=== PATIENT | female | born 1945 | race Asian ===

== ENCOUNTER 2022-05-05 09:20 | Inpatient (IN) | payer MEDICARE, OTHER ==
[~2022-05-05] VITALS: Ht 157.5 cm; Wt 50.0 kg
[2022-05-05 09:58] LABS: BASOPHILS % (AUTO) 0.7 % (0.0-2.0); EOSINOPHILS % (AUTO) 1.4 % (1.0-6.0); HEMATOCRIT 43.8 % (36-46); HEMOGLOBIN 14.5 g/dL (12.0-16.0); LYMPHOCYTES # (AUTO) 2.4 K/uL (1.0-4.8); LYMPHOCYTES % (AUTO) 19.2 % (22.0-44.0); MEAN CORPUSCULAR HEMOGLOBIN 27.8 pg (26.0-34.0); MEAN CORPUSCULAR HGB CONC 33.1 G/dL (31.0-37.0); MEAN CORPUSCULAR VOLUME 84 fL (80-100); MONOCYTES # (AUTO) 0.7 K/uL (0.1-1.0); MONOCYTES % (AUTO) 5.6 % (2.0-9.0); NEUTROPHILS # (AUTO) 9.2 K/uL (1.8-7.7); NEUTROPHILS % (AUTO) 73.1 % (40.0-70.0); PLATELET COUNT (AUTO) 465 K/uL (150-450); RED BLOOD CELL COUNT(AUTO) 5.22 MIL/uL (4.00-5.20); RED CELL DISTRIBUTION WIDTH 14.1 % (11.5-14.5)
[2022-05-05 10:03] LABS: CREATININE 1.01 mg/dL (0.60-1.30); POTASSIUM 3.6 mmol/L (3.5-5.1)
[2022-05-05 10:09] LABS: ALBUMIN 3.4 g/dL (3.4-5.0); BILIRUBIN,TOTAL 0.1 mg/dL (0.1-1.0); TOTAL PROTEIN, SERUM 8.2 g/dL (6.4-8.2)
[2022-05-05 10:10] LABS: PROTHROMBIN TIME 10.4 SEC (9.4-11.6)
[2022-05-05] MEDS ORDERED: DEXTROSE 50%-WATER 25 GM/50 ML SYRINGE IVP PRN (10:45)
[2022-05-05] MEDS ORDERED: BISACODYL 10 MG RECTAL RECTAL SUPPOSITORY PR PRN (10:45)
[2022-05-05] MEDS ORDERED: ACETAMINOPHEN 325 MG TABLET PO PRN (10:45)
[2022-05-05] MEDS ORDERED: ONDANSETRON HCL 4 MG/2 ML VIAL IVP PRN (10:45)
[2022-05-05] MEDS ORDERED: SODIUM CHLORIDE 0.9% 1,000 ML IV ONE (10:45)
[2022-05-05] MEDS ORDERED: HydrALAZINE HCL 20 MG/ML VIAL IVP PRN (10:45)
[2022-05-05] MEDS ORDERED: ASPI81TA87 PO (12:06)
[2022-05-05] MEDS ORDERED: DOCU240C25 PO (12:06)
[2022-05-05] MEDS ORDERED: OLAN5TAB30 PO (12:06)
[2022-05-05] MEDS ORDERED: MIRT7.5T11 PO (12:06)
[2022-05-05] MEDS ORDERED: SERT20OR6 PO (12:06)
[2022-05-05] MEDS ORDERED: AMLO5TAB66 PO (12:06)
[2022-05-05] MEDS ORDERED: SITA100 PO (12:06)
[2022-05-05 12:16] LABS: CHOLESTEROL 229 mg/dL (131-200); HDL CHOLESTEROL 38 mg/dL (40-60); TRIGLYCERIDES 440 mg/dL (15-150)
[2022-05-05 15:04] LABS: COVID AG,FIA SOURCE NASAL SWAB
[2022-05-05] MEDS ORDERED: OLAN2.5T29 PO (15:07)
[2022-05-05] MEDS ORDERED: SERT-439 PO (15:07)
[2022-05-05] MEDS ORDERED: DOCU-350 PO (15:07)
[2022-05-05 15:13] LABS: APPEARANCE,URINE CLEAR (CLEAR); BILIRUBIN,URINE NEGATIVE (NEGATIVE); GLUCOSE, URINE (UA) NEGATIVE (NEGATIVE); KETONES,URINE NEGATIVE (NEGATIVE); LEUKOCYTE ESTERASE ,URINE SMALL (NEGATIVE); NITRATE,URINE POSITIVE (NEGATIVE); OCCULT BLOOD,URINE MODERATE (NEGATIVE); PROTEIN,URINE 100-200,SEE CONFIRM mg/dL (NEGATIVE); SPECIFIC GRAVITIY, URINE 1.021 (1.003-1.030); UROBILINOGEN,URINE <=1.0 mg/dL (<=1.0)
[2022-05-05 15:18] LABS: AMPHET/METH SCREEN,URINE NEGATIVE (NEGATIVE); BARBITURATE SCREEN, URINE NEGATIVE (NEGATIVE); BENZODIAZEPINES SCREEN,URINE NEGATIVE (NEGATIVE); CANNABINOID SCREEN,URINE NEGATIVE (NEGATIVE); COCAINE SCREEN,URINE NEGATIVE (NEGATIVE); METHADONE SCREEN, URINE NEGATIVE (NEGATIVE); OPIATE SCREEN,URINE NEGATIVE (NEGATIVE)
[2022-05-05 15:20] LABS: PHENCYCLIDINE SCREEN,URINE NEGATIVE (NEGATIVE)
[2022-05-05] MEDS: ASPIRIN 81 MG CHEWABLE TABLET PO SCH (15:23)
[2022-05-05] MEDS: ATORVASTATIN CALCIUM 40 MG TABLET PO SCH (15:23)
[2022-05-05] MEDS: AmLODIPine BESYLATE 10 MG TABLET PO SCH (15:23)
[2022-05-05 15:33] LABS: BACTERIA,URINE Rare /HPF (None Seen); RBC,URINE 0-2 /HPF (0-2); SQUAMOUS EPITHELIAL CELL,UR Few /LPF (None Seen); SULFOSALICYLIC ACID,URINE 2+ (Negative)
[2022-05-05] MEDS: HEPARIN SODIUM,PORCINE 5,000 UNITS/ML VIAL SQ SCH (15:48)
[2022-05-05] MEDS: CARVEDILOL 6.25 MG TABLET PO SCH (16:20)
[2022-05-05] MEDS: CefTRIAXone 1 GM/DEXTROSE 50 ML IV SCH (16:22)
[2022-05-05 19:05] LABS: GLUCOSE,POINT OF CARE 137 MG/DL (70-110)
[2022-05-06 00:01] VITALS: BP 152/93
[2022-05-06] MEDS: CARVEDILOL 6.25 MG TABLET PO SCH ×3 (00:22→20:33)
[2022-05-06] MEDS: HEPARIN SODIUM,PORCINE 5,000 UNITS/ML VIAL SQ SCH ×4 (00:22→23:39)
[2022-05-06 04:19] VITALS: BP 138/72
[2022-05-06 06:16] LABS: GLUCOMETER DEV NAME(LOC) 5S.2B; GLUCOSE,POINT OF CARE 150 MG/DL (70-110)
[2022-05-06 06:31] LABS: BASOPHILS % (AUTO) 0.5 % (0.0-2.0); EOSINOPHILS % (AUTO) 1.7 % (1.0-6.0); HEMATOCRIT 37.9 % (36-46); HEMOGLOBIN 12.8 g/dL (12.0-16.0); LYMPHOCYTES # (AUTO) 1.9 K/uL (1.0-4.8); LYMPHOCYTES % (AUTO) 12.7 % (22.0-44.0); MEAN CORPUSCULAR HEMOGLOBIN 27.8 pg (26.0-34.0); MEAN CORPUSCULAR HGB CONC 33.7 G/dL (31.0-37.0); MEAN CORPUSCULAR VOLUME 83 fL (80-100); MONOCYTES # (AUTO) 0.8 K/uL (0.1-1.0); MONOCYTES % (AUTO) 5.3 % (2.0-9.0); NEUTROPHILS # (AUTO) 11.8 K/uL (1.8-7.7); NEUTROPHILS % (AUTO) 79.8 % (40.0-70.0); RED CELL DISTRIBUTION WIDTH 14.2 % (11.5-14.5)
[2022-05-06 08:30] VITALS: BP 146/80
[2022-05-06 09:13] LABS: PLATELET COUNT (AUTO) 418 K/uL (150-450)
[2022-05-06] MEDS: PANTOPRAZOLE SODIUM 40 MG/VIAL IVP SCH (09:26)
[2022-05-06] MEDS: AmLODIPine BESYLATE 10 MG TABLET PO SCH (09:30)
[2022-05-06] MEDS: ASPIRIN 81 MG CHEWABLE TABLET PO SCH (09:30)
[2022-05-06] MEDS: ATORVASTATIN CALCIUM 40 MG TABLET PO SCH (09:31)
[2022-05-06 11:23] VITALS: BP 141/69
[2022-05-06 15:30] VITALS: BP 151/89
[2022-05-06] MEDS: CefTRIAXone 1 GM/DEXTROSE 50 ML IV SCH (16:01)
[2022-05-06] MEDS ORDERED: SODIUM CHLORIDE 0.9% 250 ML IV ONE (16:03)
[2022-05-06] MEDS: INSULIN LISPRO 100 UNITS/ML SQ PRN (18:52)
[2022-05-06 19:49] VITALS: BP 120/62
[2022-05-06 20:52] LABS: GLUCOMETER DEV NAME(LOC) 5S.1B; GLUCOSE,POINT OF CARE 170 MG/DL (70-110)
[2022-05-06 20:52] LABS: GLUCOMETER DEV NAME(LOC) 5S.2B; GLUCOSE,POINT OF CARE 118 MG/DL (70-110)
[2022-05-06 23:26] LABS: GLUCOMETER DEV NAME(LOC) 5S.1B; GLUCOSE,POINT OF CARE 121 MG/DL (70-110)
[2022-05-07 00:20] VITALS: BP 161/106
[2022-05-07 00:30] VITALS: BP 141/66
[2022-05-07 04:53] VITALS: BP 147/102
[2022-05-07] MEDS: INSULIN LISPRO 100 UNITS/ML SQ PRN ×2 (06:25→12:55)
[2022-05-07 07:57] LABS: BASOPHILS % (AUTO) 0.9 % (0.0-2.0); EOSINOPHILS % (AUTO) 2.1 % (1.0-6.0); HEMATOCRIT 38.3 % (36-46); HEMOGLOBIN 12.5 g/dL (12.0-16.0); LYMPHOCYTES # (AUTO) 2.9 K/uL (1.0-4.8); LYMPHOCYTES % (AUTO) 19.8 % (22.0-44.0); MEAN CORPUSCULAR HEMOGLOBIN 27.2 pg (26.0-34.0); MEAN CORPUSCULAR HGB CONC 32.6 G/dL (31.0-37.0); MEAN CORPUSCULAR VOLUME 84 fL (80-100); MONOCYTES # (AUTO) 0.7 K/uL (0.1-1.0); NEUTROPHILS # (AUTO) 10.6 K/uL (1.8-7.7); NEUTROPHILS % (AUTO) 72.2 % (40.0-70.0); PLATELET COUNT (AUTO) 440 K/uL (150-450); RED BLOOD CELL COUNT(AUTO) 4.59 MIL/uL (4.00-5.20); RED CELL DISTRIBUTION WIDTH 14.2 % (11.5-14.5)
[2022-05-07 08:01] LABS: CALCIUM, TOTAL 8.9 mg/dL (8.8-10.5); CREATININE 1.06 mg/dL (0.60-1.30); POTASSIUM 3.8 mmol/L (3.5-5.1)
[2022-05-07 08:02] VITALS: BP 146/92
[2022-05-07] MEDS: AmLODIPine BESYLATE 10 MG TABLET PO SCH (08:23)
[2022-05-07] MEDS: PANTOPRAZOLE SODIUM 40 MG/VIAL IVP SCH (08:23)
[2022-05-07] MEDS: HEPARIN SODIUM,PORCINE 5,000 UNITS/ML VIAL SQ SCH ×2 (08:23→15:46)
[2022-05-07] MEDS: CARVEDILOL 6.25 MG TABLET PO SCH (08:23)
[2022-05-07] MEDS: ASPIRIN 81 MG CHEWABLE TABLET PO SCH (08:24)
[2022-05-07] MEDS: ATORVASTATIN CALCIUM 40 MG TABLET PO SCH (08:24)
[2022-05-07] MEDS ORDERED: AMLO-258 PO (09:37)
[2022-05-07 13:26] LABS: GLUCOMETER DEV NAME(LOC) 5S.2B; GLUCOSE,POINT OF CARE 188 MG/DL (70-110)
[2022-05-07] MEDS: CefTRIAXone 1 GM/DEXTROSE 50 ML IV SCH (15:46)
[2022-05-07 17:26] LABS: GLUCOMETER DEV NAME(LOC) 5S.1B; GLUCOSE,POINT OF CARE 155 MG/DL (70-110)
== END 2022-05-07 16:15 | disposition home or self-care (01) | DRG 65 ==
LOC: EMS 09:21 → 5S 21:07
PROVIDERS: ADMIT Internal Medicine; ATTEND Internal Medicine
DX: I63.81 Other cerebral infarction due to occlusion or stenosis of small artery (principal); E44.0 Moderate protein-calorie malnutrition; R41.82 Altered mental status, unspecified; R47.01 Aphasia; I65.29 Occlusion and stenosis of unspecified carotid artery; D72.829 Elevated white blood cell count, unspecified; F03.90 Unspecified dementia, unspecified severity, without behavioral disturbance, psychotic disturbance, mood disturbance, and anxiety; I10 Essential (primary) hypertension; R62.7 Adult failure to thrive; Z86.73 Personal history of transient ischemic attack (TIA), and cerebral infarction without residual deficits; Z79.82 Long term (current) use of aspirin; Z79.899 Other long term (current) drug therapy; Z20.822 Contact with and (suspected) exposure to COVID-19
CPT/HCPCS: 70496; 70498; 71045; 80048; 80053; 80061; 81001; 81002; 82948; 82962; 84484; 85025; 85610; 85730; 86850; 86900; 86901; 92526; 92610; 93005; 93306; 99291; C9113; J0360; J0696; J1644; J7050; 36415-L1; 36415-TC; 70450; 70450-TC